=== PATIENT | female | born 1980 | race Caucasian/White ===

== ENCOUNTER 2017-12-13 06:27 | Day surgery (SDC) | payer BC ==
[~2017-12-13 06:27] MED LIST: Lidocaine 1%/Sod Bicarbonate in NS 8.4% 1 ML Syringe IDERM PRN; Sodium Chloride 0.9% 10 ML Syringe FLUSH PRN
[2017-12-13] MEDS: Lactated Ringers 1,000 ML IV SCH ×2 (06:50→15:03)
[2017-12-13] MEDS ORDERED: Rocuronium 50 MG/5 ML Vial ONE (07:24)
[2017-12-13] MEDS ORDERED: Ondansetron 4 MG/2 ML SDV ONE (07:24)
[2017-12-13] MEDS ORDERED: ceFAZolin 1 GM Vial ONE (07:24)
[2017-12-13] MEDS ORDERED: HYDROmorphone 1 MG/ML Syringe ONE ×2 (07:25→10:39)
[2017-12-13] MEDS ORDERED: Propofol 200 MG/20 ML SDV ONE (07:25)
[2017-12-13] MEDS ORDERED: fentaNYL 250 MCG/5 ML SDV ONE (07:25)
[2017-12-13] MEDS ORDERED: Midazolam 1 MG/ML 2 ML SDV ONE (07:25)
--- NOTE | 2017-12-13 07:27 | PCM.PREANE ---
Preanesthetic Assessment - Anesthesia/Transfusion/Family Hx Anesthesia History: Prior Anesthesia Without Reaction Family History of Anesthesia Reaction: No Transfusion History: No Prior Transfusion(s) - Review of Systems General: No Symptoms Pulmonary: Other (allergy induced asthma, uses inhaler very rarely) Cardiovascular: No Symptoms Gastrointestinal: No Symptoms Neurological: No Symptoms Other: Reports: Depression, Anxiety - Physical Assessment NPO Status Date: 12/12/17 NPO Status Time: 22:30 Pulse: 84 O2 Sat by Pulse Oximetry: 99 Respiratory Rate: 16 Blood Pressure: 143/85 Temperature: 37.4 C Vital Signs: Last Vital Signs Temp 37.4 C 12/13/17 06:35 Pulse 84 12/13/17 06:35 Resp 16 12/13/17 06:35 BP 143/85 H 12/13/17 06:35 Pulse Ox 99 12/13/17 06:35 Height: 1.57 m Weight: 94.801 kg ASA Class: 2 Mental Status: Alert & Oriented x3 Airway Class: Mallampati = 2 Dentition: Reports: Normal Dentition Thyro-Mental Finger Breadths: 3 Mouth Opening Finger Breadths: 3 ROM/Head Extension: Full Lungs: Clear to Auscultation, Normal Respiratory Effort Cardiovascular: Regular Rate, Regular Rhythm - Lab Values: Laboratory Last Values WBC 10.06 K/mm3 (3.98-10.04) H 12/13/17 06:50 RBC 4.68 M/mm3 (3.98-5.22) 12/13/17 06:50 Hgb 13.9 gm/L (11.2-15.7) 12/13/17 06:50 Hct 39.7 % (34.1-44.9) 12/13/17 06:50 MCV 84.8 fl (79.4-94.8) 12/13/17 06:50 MCH 29.7 pg (25.6-32.2) 12/13/17 06:50 MCHC 35.0 g/dl (32.2-35.5) 12/13/17 06:50 RDW Std Deviation 38.6 fL (36.4-46.3) 12/13/17 06:50 Plt Count 278 K/mm3 (182-369) 12/13/17 06:50 MPV 10.6 fl (9.4-12.3) 12/13/17 06:50 Neut % (Auto) 64.3 % (34.0-71.1) 12/13/17 06:50 Lymph % (Auto) 27.1 % (19.3-51.7) 12/13/17 06:50 [place] % (Auto) 5.4 % (4.7-12.5) 12/13/17 06:50 Eos % (Auto) 3.0 (0.7-5.8) 12/13/17 06:50 Baso % (Auto) 0.2 % (0.1-1.2) 12/13/17 06:50 Neut # (Auto) 6.47 K/mm3 (1.56-6.13) H 12/13/17 06:50 Lymph # (Auto) 2.73 K/mm3 (1.18-3.74) 12/13/17 06:50 [place] # (Auto) 0.54 K/mm3 (0.24-0.36) H 12/13/17 06:50 Eos # (Auto) 0.30 K/mm3 (0.04-0.36) 12/13/17 06:50 Baso # (Auto) 0.02 K/mm3 (0.01-0.08) 12/13/17 06:50 Sodium 138 mEq/L (136-145) 12/13/17 06:50 Potassium 4.1 mEq/L (3.5-5.1) 12/13/17 06:50 Chloride 102 mEq/L (98-107) 12/13/17 06:50 Carbon Dioxide 24 mEq/L (21-32) 12/13/17 06:50 Anion Gap 16.1 (5-15) H 12/13/17 06:50 Urine HCG, Qual Negative (NEGATIVE) 12/13/17 06:34 - Allergies Allergies/Adverse Reactions: Allergies Allergy/AdvReac Type Severity Reaction Status Date / Time No Known Allergies Allergy Verified 12/12/17 11:10 - Blood Blood Available: No Product(s) Available: None - Anesthesia Plan Pre-Op Medication Ordered: None - Acknowledgements Anesthesia Type Planned: General Anesthesia Pt an Appropriate Candidate for the Planned Anesthesia: Yes Alternatives and Risks of Anesthesia Discussed w Pt/Guardian: Yes Pt/Guardian Understands and Agrees with Anesthesia Plan: Yes PreAnesthesia Questionnaire HEENT History: Reports: Allergic Rhinitis Cardiovascular History: Reports: None Respiratory History: Reports: Asthma Gastrointestinal History: Reports: None Genitourinary History: Reports: Other (See Below) Other Genitourinary History: cystocele, rectocele, uterine prolapse DEVULCANIZER HEAD History: Reports: Musculoskeletal History: Reports: Other (See Below) Other Musculoskeletal History: muscle spasm Neurological History: Reports: Headaches, Chronic Psychiatric History: Reports: Anxiety, Depression Endocrine/Metabolic History: Reports: Vitamin D Deficiency Hematologic History: Reports: None Immunologic History: Reports: None Oncologic (Cancer) History: Reports: None Dermatologic History: Reports: None - Past Surgical History Head Surgeries/Procedures: Reports: None HEENT Surgical History: Reports: None Cardiovascular Surgical History: Reports: None Respiratory Surgical History: Reports: None GI Surgical History: Reports: Cholecystectomy Male Surgical History: Reports: None Endocrine Surgical History: Reports: None Neurological Surgical History: Reports: None Oncologic Surgical History: Reports: None - SUBSTANCE USE Smoking Status *Q: Never Smoker Tobacco Use Within Last Twelve Months: No Second Hand Smoke Exposure: No Days Per Week of Alcohol Use: 0 Recreational Drug Use History: No - HOME MEDS Home Medications: Home Meds Bethanechol Chloride [Urecholine] 10 mg PO DAILY 12/12/17 [History] Cholecalciferol (Vitamin D3) [Vitamin D3] 50,000 unit PO TU 12/12/17 [History] Multivitamin [Poly-Vitamin] 1 tab PO DAILY 12/12/17 [History] - CURRENT (IN HOUSE) MEDS Current Meds: Current Medications Lactated Ringer's (Ringers, Lactated) 1,000 mls @ 125 mls/hr IV ASDIRECTED RICHARD Stop: 12/13/17 23:00 Last Admin: 12/13/17 06:50 Dose: 125 mls/hr Lidocaine/Sodium Bicarbonate (Buffered Lidocaine 1% In Ns 8.4%) 0.25 ml IDERM ONETIME PRN PRN Reason: Prior to IV Start Stop: 12/13/17 18:00 Last Admin: 12/13/17 06:50 Dose: 0.25 ml Sodium Chloride (Saline Flush) 10 ml FLUSH ASDIRECTED PRN PRN Reason: Keep Vein Open Stop: 12/13/17 18:00 Discontinued Medications Cefazolin Sodium (Ancef) Confirm Administered Dose 2 gm .ROUTE .STK-MED ONE Stop: 12/13/17 07:25 Fentanyl (Sublimaze) Confirm Administered Dose 250 mcg .ROUTE .STK-MED ONE Stop: 12/13/17 07:26 Hydromorphone HCl (Dilaudid) Confirm Administered Dose 1 mg .ROUTE .ST-MED ONE Stop: 12/13/17 07:26 Midazolam HCl (Versed 1 Mg/Ml) Confirm Administered Dose 2 mg .ROUTE .ST-MED ONE Stop: 12/13/17 07:26 Ondansetron HCl (Zofran) Confirm Administered Dose 4 mg .ROUTE .STK-MED ONE Stop: 12/13/17 07:25 Propofol (Diprivan 20 Ml) Confirm Administered Dose 200 mg .ROUTE .ST-MED ONE Stop: 12/13/17 07:26 Rocuronium [place] (Zemuron) Confirm Administered Dose 50 mg .ROUTE .ST-MED ONE Stop: 12/13/17 07:25
[2017-12-13] MEDS: Sodium Chloride 0.9% 50 ML SDV ONE ×2 (08:36→09:19)
[2017-12-13] MEDS: Lidocaine 1% with EPINEPHrine 1:100,000 20 ML MDV ONE ×2 (08:36→09:19)
[2017-12-13] MEDS ORDERED: Lactated Ringers 1,000 ML ONE ×2 (09:37→10:55)
[2017-12-13] MEDS ORDERED: fentaNYL 100 MCG/2 ML SDV IVPUSH PRN (11:34)
--- NOTE | 2017-12-13 11:34 | PCM.POSTAN ---
POST ANESTHESIA ASSESSMENT - MENTAL STATUS Mental Status: Alert, Oriented - VITAL SIGNS Pulse Rate: 100 SaO2: 97 Resp Rate: 16 Blood Pressure: 114/67 Temperature: 37.4 C - RESPIRATORY Respiratory Status: Respiratory Rate WNL, Airway Patent, O2 Saturation Stable, Supplemental Oxygen - CARDIOVASCULAR CV Status: Pulse Rate WNL, Blood Pressure Stable - GASTROINTESTINAL GI Status: No Symptoms - PAIN Pain Score: 0 - POST OP HYDRATION Hydration Status: Adequate & Stable
--- NOTE | 2017-12-13 11:39 | PCM.OPNOTE ---
- General Post-Op/Procedure Note Date of Surgery/Procedure: 12/13/17 Operative Procedure(s): Total vaginal hysterectomy bilateral salpingectomy. Anterior posterior colporrhaphy. Mid urethral sling Pre Op Diagnosis: Uterovaginal prolapse, midline cystocele, rectocele Post-Op Diagnosis: Same Anesthesia Technique: General ET Tube Primary Surgeon: Khurram Salgado Secondary Surgeon: Michelle Arenas Anesthesia Provider: Litzy Javed Evaporative Cooler Installer: Artemio Rosado (RYLEE) Reason Evaporative Cooler Installer Was Necessary: Difficult surgery, provide assistance with surgery in addition to retraction. Decrease cold comorbidity and comortality Role of Evaporative Cooler Installer: Difficult surgery, provide assistance with surgery in addition to retraction. Decrease cold comorbidity and comortality Fluid Replacement, Intraop: 2,700 Output, Urine Amount: 105 EBL in mLs: 450 Drain/Tube Comments:: None Complications: None Condition: Good Free Text/Narrative:: Intake & Output 12/12/17 12/13/17 12/13/17 22:59 06:59 14:59 Output Total 105 Balance -105 Patient was transported to operating room #2 and placed under general anesthesia in low dorsal lithotomy position. Prepared and draped in a sterile fashion. SCDs in place and functioning prior surgery. Ancef 2 g given intravenously prior surgery. Examination under anesthesia revealed anterior uterus no adnexal masses cystocele noted second to third degree and first to second-degree rectocele. Timeout performed confirming name, date of , procedure as total vaginal hysterectomy bilateral salpingectomy (possible removal of one or both ovaries-neither ovary removed), anterior and posterior colporrhaphy and mid urethral sling, possible total abdominal hysterectomy bilateral salpingectomy, anterior posterior repair (colporrhaphy) and mid urethral sling. The cervix was injected with 0.25% lidocaine with epinephrine and multiple confluent areas 20 mL total. This was massaged into the tissue to help with hydrodissection. Circumscribing incision was made around the cervix. Posterior colpotomy was performed without difficulty. Utilizing LigaSure crossclamping the uterosacral cardinal ligaments on the left side activating and incising same procedure carried out on the right side anterior colpotomy was then performed without difficulty and proceeding in a pedicle fashion cephalad crossclamping activating incising until the area of the triple pedicle was approximated. Crossclamping with Daljit clamps bilaterally the uterus and cervix were removed. Utilizing #1 Vicryl suture placed at both triple pedicles. And LigaSure as well for hemostasis. The right and left ovaries both appeared normal there were not removed. The left tube was grasped and utilizing LigaSure crossclamping the mesosalpinx and removing the left fallopian tube after activation LigaSure. Same procedure carried out on the patient's right side. The posterior cuff was closed from 10:00 to 2:00 running locking suture of 0 Monocryl additional [id number] sutures at the right side and at approximate 5:00 for hemostasis. The anterior colporrhaphy was then performed by injecting 7 mL of 0.5% lidocaine with epinephrine in the subvaginal space to allow hydrodissection and incising to approximately 1 cm short of the cystoscopy urethral angle the redundant mucosa was pushed laterally with wet 4 x 4. Plication sutures of 0 Monocryl were placed to reduce the cystocele. The redundant vaginal causes a was excised and the vaginal mucosa was approximated with a running suture of 3-0 Monocryl. The anterior posterior cuff then closed running locking suture of 0 Monocryl after confirming no bleeding. Sponge needle pack asthma sharp count correct 2 prior to closure of the vaginal cuff. The bladder was drained. Urine clear and yellow no blood. The mid urethral sling was then performed and grasping just approximately 10 mm short of the external urethral meatus and at the cystoscopy vaginal angle injecting 3 mL of 0.5% lidocaine with epinephrine and incising this area. The obturator foramen bilaterally identified and marked with a marking pen and injected with 2 mL of lidocaine 0.25% with epinephrine bilaterally and incising approximate 5 mm incision to allow passage of the mid urethral sling instruments. Dissecting to the obturator foramen bilaterally and pushing the bladder and urethra cephalad the sling needles were passed from the left side first and then right side confirming no vaginal Telma and no and impingement upon the bladder utilizing a #[address] the sling properly the redundant mesh tissue was excised at the skin level left and right side above the obturator foramen. Reconfirming that the mesh was not to tense and not twisted, the mucosa was closed with a running suture of 3-0 Monocryl. The posterior was then performed grasping at approximate 5:00 and 7:00 at the perineal body making an inverted farrukh incision the redundant mucosa was removed and undermining after injecting 3 mL of 0.5% lidocaine with epinephrine the rectal vaginal mucosa the rectocele was reduced and the plication sutures placed and the rectocele repaired. Redundant vaginal mucosa was excised. 3-0 Monocryl was utilized running suture to close the vaginal mucosa. And the perineal skin was approximated with 3-0 Monocryl subcuticular suture. Sponge needle pack asthma count correct 2. Rectal exam was negative at the end procedure. No blood transfusions required patient transported postanesthesia care unit in satisfactory condition. Talked with family and all questions answered to their voiced satisfaction. [place] We'll probably need to keep patient overnight for pain management.
[2017-12-13] MEDS ORDERED: HYDROmorphone 0.5 MG/0.5 ML Syringe IVPUSH ONE (12:40)
--- NOTE | 2017-12-13 12:56 | PCM48HPAN ---
Post Anesthesia Note - EVALUATION WITHIN 48HRS OF ANESTHETIC Vital Signs in Normal Range: Yes Patient Participated in Evaluation: Yes Respiratory Function Stable: Yes Airway Patent: Yes Cardiovascular Function Stable: Yes Hydration Status Stable: Yes Pain Control Satisfactory: Yes Nausea and Vomiting Control Satisfactory: Yes Mental Status Recovered: Yes Pulse Rate: 78 SaO2: 99 Resp Rate: 10 Temperature: 37.4 C Blood Pressure: 114/67
[2017-12-13] MEDS: Acetaminophen/oxyCODONE 325-5 MG Tab PO PRN ×2 (15:28→20:08)
[2017-12-13] MEDS ORDERED: Ketorolac 30 MG/ML SDV IVPUSH ONE (16:00)
--- NOTE | 2017-12-13 17:55 | PCM.SN ---
- Free Text/Narrative Note: DOS Afebrile, no heavy vaginal bleeding, difficulty voiding. No leg cramping. Post void residual scan after voiding.
[2017-12-14] MEDS: Acetaminophen/oxyCODONE 325-5 MG Tab PO PRN ×3 (00:29→08:44)
[2017-12-14] MEDS: Ibuprofen 600 MG Tab PO PRN ×2 (00:29→07:47)
[2017-12-14 07:53] VITALS: BP 139/84
--- NOTE | 2017-12-14 08:28 | PCM.DCSUM1 ---
Discharge Summary - Hospital Course Free Text/Narrative:: [facility] Post-Op/Procedure Note Patient Name: PRETTY BEACH Date of : 78 Patient Status: Surgical Day Care Attending Provider: Khurram Salgado Date: 12/13/17 11:27 Initialization Date: 12/13/17 11:27 - General Post-Op/Procedure Note Date of Surgery/Procedure: 12/13/17 Operative Procedure(s): Total vaginal hysterectomy bilateral salpingectomy. Anterior posterior colporrhaphy. Mid urethral sling Pre Op Diagnosis: Uterovaginal prolapse, midline cystocele, rectocele Post-Op Diagnosis: Same Anesthesia Technique: General ET Tube Primary Surgeon: Khurram Salgado Secondary Surgeon: Michelle Arenas Anesthesia Provider: Litzy Javed Gasket Maker: Artemio Rosado (RYLEE) Reason Gasket Maker Was Necessary: Difficult surgery, provide assistance with surgery in addition to retraction. Decrease cold comorbidity and comortality Role of Gasket Maker: Difficult surgery, provide assistance with surgery in addition to retraction. Decrease cold comorbidity and comortality Fluid Replacement, Intraop: 2,700 Output, Urine Amount: 105 EBL in mLs: 450 Drain/Tube Comments:: None Complications: None Condition: Good Free Text/Narrative:: Intake & Output 12/12/17 12/13/17 12/13/17 22:59 06:59 14:59 Output Total 105 Balance -105 Patient was transported to operating room #2 and placed under general anesthesia in low dorsal lithotomy position. Prepared and draped in a sterile fashion. SCDs in place and functioning prior surgery. Ancef 2 g given intravenously prior surgery. Examination under anesthesia revealed anterior uterus no adnexal masses cystocele noted second to third degree and first to second-degree rectocele. Timeout performed confirming name, date of , procedure as total vaginal hysterectomy bilateral salpingectomy (possible removal of one or both ovaries-neither ovary removed), anterior and posterior colporrhaphy and mid urethral sling, possible total abdominal hysterectomy bilateral salpingectomy, anterior posterior repair (colporrhaphy) and mid urethral sling. The cervix was injected with 0.25% lidocaine with epinephrine and multiple confluent areas 20 mL total. This was massaged into the tissue to help with hydrodissection. Circumscribing incision was made around the cervix. Posterior colpotomy was performed without difficulty. Utilizing LigaSure crossclamping the uterosacral cardinal ligaments on the left side activating and incising same procedure carried out on the right side anterior colpotomy was then performed without difficulty and proceeding in a pedicle fashion cephalad crossclamping activating incising until the area of the triple pedicle was approximated. Crossclamping with Daljit clamps bilaterally the uterus and cervix were removed. Utilizing #1 Vicryl suture placed at both triple pedicles. And LigaSure as well for hemostasis. The right and left ovaries both appeared normal there were not removed. The left tube was grasped and utilizing LigaSure crossclamping the mesosalpinx and removing the left fallopian tube after activation LigaSure. Same procedure carried out on the patient's right side. The posterior cuff was closed from 10:00 to 2:00 running locking suture of 0 Monocryl additional [id number] sutures at the right side and at approximate 5:00 for hemostasis. The anterior colporrhaphy was then performed by injecting 7 mL of 0.5% lidocaine with epinephrine in the subvaginal space to allow hydrodissection and incising to approximately 1 cm short of the cystoscopy urethral angle the redundant mucosa was pushed laterally with wet 4 x 4. Plication sutures of 0 Monocryl were placed to reduce the cystocele. The redundant vaginal causes a was excised and the vaginal mucosa was approximated with a running suture of 3-0 Monocryl. The anterior posterior cuff then closed running locking suture of 0 Monocryl after confirming no bleeding. Sponge needle pack asthma sharp count correct 2 prior to closure of the vaginal cuff. The bladder was drained. Urine clear and yellow no blood. The mid urethral sling was then performed and grasping just approximately 10 mm short of the external urethral meatus and at the cystoscopy vaginal angle injecting 3 mL of 0.5% lidocaine with epinephrine and incising this area. The obturator foramen bilaterally identified and marked with a marking pen and injected with 2 mL of lidocaine 0.25% with epinephrine bilaterally and incising approximate 5 mm incision to allow passage of the mid urethral sling instruments. Dissecting to the obturator foramen bilaterally and pushing the bladder and urethra cephalad the sling needles were passed from the left side first and then right side confirming no vaginal Telma and no and impingement upon the bladder utilizing a #[address] the sling properly the redundant mesh tissue was excised at the skin level left and right side above the obturator foramen. Reconfirming that the mesh was not to tense and not twisted, the mucosa was closed with a running suture of 3-0 Monocryl. The posterior was then performed grasping at approximate 5:00 and 7:00 at the perineal body making an inverted farrukh incision the redundant mucosa was removed and undermining after injecting 3 mL of 0.5% lidocaine with epinephrine the rectal vaginal mucosa the rectocele was reduced and the plication sutures placed and the rectocele repaired. Redundant vaginal mucosa was excised. 3-0 Monocryl was utilized running suture to close the vaginal mucosa. And the perineal skin was approximated with 3-0 Monocryl subcuticular suture. Sponge needle pack asthma count correct 2. Rectal exam was negative at the end procedure. No blood transfusions required patient transported postanesthesia care unit in satisfactory condition. Talked with family and all questions answered to their voiced satisfaction. Patient [place] approximate 30 [place] hospital [place] We'll probably need to keep patient overnight for pain management. HPI Initial Comments: [facility] Post-Op/Procedure Note Patient Name: PRETTY BEACH Date of : 78 Patient Status: Surgical Day Care Attending Provider: Khurram Salgado Date: 12/13/17 11:27 Initialization Date: 12/13/17 11:27 - General Post-Op/Procedure Note Date of Surgery/Procedure: 12/13/17 Operative Procedure(s): Total vaginal hysterectomy bilateral salpingectomy. Anterior posterior colporrhaphy. Mid urethral sling Pre Op Diagnosis: Uterovaginal prolapse, midline cystocele, rectocele Post-Op Diagnosis: Same Anesthesia Technique: General ET Tube Primary Surgeon: Khurram Salgado Secondary Surgeon: Michelle Arenas Anesthesia Provider: Litzy Javed Gasket Maker: Artemio Rosado (RYLEE) Reason Gasket Maker Was Necessary: Difficult surgery, provide assistance with surgery in addition to retraction. Decrease cold comorbidity and comortality Role of Gasket Maker: Difficult surgery, provide assistance with surgery in addition to retraction. Decrease cold comorbidity and comortality Fluid Replacement, Intraop: 2,700 Output, Urine Amount: 105 EBL in mLs: 450 Drain/Tube Comments:: None Complications: None Condition: Good Free Text/Narrative:: Intake & Output 12/12/17 12/13/17 12/13/17 22:59 06:59 14:59 Output Total 105 Balance -105 Patient was transported to operating room #2 and placed under general anesthesia in low dorsal lithotomy position. Prepared and draped in a sterile fashion. SCDs in place and functioning prior surgery. Ancef 2 g given intravenously prior surgery. Examination under anesthesia revealed anterior uterus no adnexal masses cystocele noted second to third degree and first to second-degree rectocele. Timeout performed confirming name, date of , procedure as total vaginal hysterectomy bilateral salpingectomy (possible removal of one or both ovaries-neither ovary removed), anterior and posterior colporrhaphy and mid urethral sling, possible total abdominal hysterectomy bilateral salpingectomy, anterior posterior repair (colporrhaphy) and mid urethral sling. The cervix was injected with 0.25% lidocaine with epinephrine and multiple confluent areas 20 mL total. This was massaged into the tissue to help with hydrodissection. Circumscribing incision was made around the cervix. Posterior colpotomy was performed without difficulty. Utilizing LigaSure crossclamping the uterosacral cardinal ligaments on the left side activating and incising same procedure carried out on the right side anterior colpotomy was then performed without difficulty and proceeding in a pedicle fashion cephalad crossclamping activating incising until the area of the triple pedicle was approximated. Crossclamping with Daljit clamps bilaterally the uterus and cervix were removed. Utilizing #1 Vicryl suture placed at both triple pedicles. And LigaSure as well for hemostasis. The right and left ovaries both appeared normal there were not removed. The left tube was grasped and utilizing LigaSure crossclamping the mesosalpinx and removing the left fallopian tube after activation LigaSure. Same procedure carried out on the patient's right side. The posterior cuff was closed from 10:00 to 2:00 running locking suture of 0 Monocryl additional [id number] sutures at the right side and at approximate 5:00 for hemostasis. The anterior colporrhaphy was then performed by injecting 7 mL of 0.5% lidocaine with epinephrine in the subvaginal space to allow hydrodissection and incising to approximately 1 cm short of the cystoscopy urethral angle the redundant mucosa was pushed laterally with wet 4 x 4. Plication sutures of 0 Monocryl were placed to reduce the cystocele. The redundant vaginal causes a was excised and the vaginal mucosa was approximated with a running suture of 3-0 Monocryl. The anterior posterior cuff then closed running locking suture of 0 Monocryl after confirming no bleeding. Sponge needle pack asthma sharp count correct 2 prior to closure of the vaginal cuff. The bladder was drained. Urine clear and yellow no blood. The mid urethral sling was then performed and grasping just approximately 10 mm short of the external urethral meatus and at the cystoscopy vaginal angle injecting 3 mL of 0.5% lidocaine with epinephrine and incising this area. The obturator foramen bilaterally identified and marked with a marking pen and injected with 2 mL of lidocaine 0.25% with epinephrine bilaterally and incising approximate 5 mm incision to allow passage of the mid urethral sling instruments. Dissecting to the obturator foramen bilaterally and pushing the bladder and urethra cephalad the sling needles were passed from the left side first and then right side confirming no vaginal Telma and no and impingement upon the bladder utilizing a #[address] the sling properly the redundant mesh tissue was excised at the skin level left and right side above the obturator foramen. Reconfirming that the mesh was not to tense and not twisted, the mucosa was closed with a running suture of 3-0 Monocryl. The posterior was then performed grasping at approximate 5:00 and 7:00 at the perineal body making an inverted farrukh incision the redundant mucosa was removed and undermining after injecting 3 mL of 0.5% lidocaine with epinephrine the rectal vaginal mucosa the rectocele was reduced and the plication sutures placed and the rectocele repaired. Redundant vaginal mucosa was excised. 3-0 Monocryl was utilized running suture to close the vaginal mucosa. And the perineal skin was approximated with 3-0 Monocryl subcuticular suture. Sponge needle pack asthma count correct 2. Rectal exam was negative at the end procedure. No blood transfusions required patient transported postanesthesia care unit in satisfactory condition. Talked with family and all questions answered to their voiced satisfaction. Patient lives approximate 30 miles from the hospital [place] We'll probably need to keep patient overnight for pain management. Brief History: [facility] . Post-Op/Procedure Note. Patient Name: PRETTY BEACH Record Number: [id number]. Date of : Patient Status: Surgical Day Care. Attending Provider: Khurram Salgadoount Number: [id number]. Date: 12/13/17 11:27Initialization Date: 11:27. - General Post-Op/Procedure Note. Date of Surgery/Procedure: . Operative Procedure(s): Total vaginal hysterectomy bilateral salpingectomy. Anterior posterior colporrhaphy. Mid urethral sling. Pre Op Diagnosis: Uterovaginal prolapse, midline cystocele, rectocele. Post-Op Diagnosis: Same. Anesthesia Technique: General ET Tube. Primary Surgeon: Khurram Salgado. Secondary Surgeon: Michelle Arenas. Anesthesia Provider: Litzy Javed. Gasket Maker: Artemio Rosado (RYLEE). Reason Gasket Maker Was Necessary: Difficult surgery, provide assistance with surgery in addition to retraction. Decrease cold comorbidity and comortality. Role of Gasket Maker: Difficult surgery, provide assistance with surgery in addition to retraction. Decrease cold comorbidity and comortality. Fluid Replacement, Intraop: 2,700. Output, Urine Amount: 105. EBL in mLs: 450. Drain/Tube Comments:: None. Complications: None. Condition: Good. Free Text/Narrative:: Intake & Output. 12/12/1801/. [id number]:[id number]. Output [id number]. Balance-105. Patient was transported to operating room #2 and placed under general anesthesia in low dorsal lithotomy position. Prepared and draped in a sterile fashion. SCDs in place and functioning prior surgery. Ancef 2 g given intravenously prior surgery. Examination under anesthesia revealed anterior uterus no adnexal masses cystocele noted second to third degree and first to second-degree rectocele. Timeout performed confirming name, date of , procedure as total vaginal hysterectomy bilateral salpingectomy (possible removal of one or both ovaries-neither ovary removed), anterior and posterior colporrhaphy and mid urethral sling, possible total abdominal hysterectomy bilateral salpingectomy, anterior posterior repair (colporrhaphy) and mid urethral sling. The cervix was injected with 0.25% lidocaine with epinephrine and multiple confluent areas 20 mL total. This was massaged into the tissue to help with hydrodissection. Circumscribing incision was made around the cervix. Posterior colpotomy was performed without difficulty. Utilizing LigaSure crossclamping the uterosacral cardinal ligaments on the left side activating and incising same procedure carried out on the right side anterior colpotomy was then performed without difficulty and proceeding in a pedicle fashion cephalad crossclamping activating incising until the area of the triple pedicle was approximated. Crossclamping with Daljit clamps bilaterally the uterus and cervix were removed. Utilizing #1 Vicryl suture placed at both triple pedicles. And LigaSure as well for hemostasis. The right and left ovaries both appeared normal there were not removed. The left tube was grasped and utilizing LigaSure crossclamping the mesosalpinx and removing the left fallopian tube after activation LigaSure. Same procedure carried out on the patient's right side. The posterior cuff was closed from 10:00 to 2:00 running locking suture of 0 Monocryl additional [id number] sutures at the right side and at approximate 5:00 for hemostasis. The anterior colporrhaphy was then performed by injecting 7 mL of 0.5% lidocaine with epinephrine in the subvaginal space to allow hydrodissection and incising to approximately 1 cm short of the cystoscopy urethral angle the redundant mucosa was pushed laterally with wet 4 x 4. Plication sutures of 0 Monocryl were placed to reduce the cystocele. The redundant vaginal causes a was excised and the vaginal mucosa was approximated with a running suture of 3-0 Monocryl. The anterior posterior cuff then closed running locking suture of 0 Monocryl after confirming no bleeding. Sponge needle pack asthma sharp count correct 2 prior to closure of the vaginal cuff. The bladder was drained. Urine clear and yellow no blood. The mid urethral sling was then performed and grasping just approximately 10 mm short of the external urethral meatus and at the cystoscopy vaginal angle injecting 3 mL of 0.5% lidocaine with epinephrine and incising this area. The obturator foramen bilaterally identified and marked with a marking pen and injected with 2 mL of lidocaine 0.25% with epinephrine bilaterally and incising approximate 5 mm incision to allow passage of the mid urethral sling instruments. Dissecting to the obturator foramen bilaterally and pushing the bladder and urethra cephalad the sling needles were passed from the left side first and then right side confirming no vaginal Telma and no and impingement upon the bladder utilizing a #[address] the sling properly the redundant mesh tissue was excised at the skin level left and right side above the obturator foramen. Reconfirming that the mesh was not to tense and not twisted, the mucosa was closed with a running suture of 3-0 Monocryl. The posterior was then performed grasping at approximate 5:00 and 7:00 at the perineal body making an inverted farrukh incision the redundant mucosa was removed and undermining after injecting 3 mL of 0.5% lidocaine with epinephrine the rectal vaginal mucosa the rectocele was reduced and the plication sutures placed and the rectocele repaired. Redundant vaginal mucosa was excised. 3-0 Monocryl was utilized running suture to close the vaginal mucosa. And the perineal skin was approximated with 3-0 Monocryl subcuticular suture. Sponge needle pack asthma count correct 2. Rectal exam was negative at the end procedure. No blood transfusions required patient transported postanesthesia care unit in satisfactory condition. Talked with family and all questions answered to their voiced satisfaction. Patient lives approximate 30 miles from the hospital [place] road. We'll probably need to keep patient overnight for pain management. - Discharge Data Discharge Date: 12/14/17 Discharge Disposition: Home, Self-Care 01 Condition: Good - Discharge Diagnosis/Problem(s) (1) Uterovaginal prolapse SNOMED Code(s): 52907414 ICD Code: N81.4 - UTEROVAGINAL PROLAPSE, UNSPECIFIED Status: Acute Current Visit: Yes (2) Cystocele, midline SNOMED Code(s): 193316206 ICD Code: N81.11 - CYSTOCELE, MIDLINE Status: Acute Current Visit: Yes (3) Rectocele SNOMED Code(s): 013368159 ICD Code: N81.6 - RECTOCELE Status: Acute Current Visit: Yes - Patient Summary/Data Operative Procedure(s) Performed: Total vaginal hysterectomy bilateral salpingectomy. Anterior posterior colporrhaphy. Mid urethral sling Complications: Patient had postoperative urinary retention, [place] [address] [place] [address] [place] bad weather skull travel back if complications, postoperative pain management patient placed on extended floor recovery. Consults: None - Patient Instructions Diet: Regular Diet as Tolerated Driving: Do Not Drive (2 weeks and for 48 hours after last dose of Percocet.) Showering/Bathing: May Shower, No Tub Bathing/Swimming (6 weeks) Notify Provider of: Fever, Increased Pain, Swelling and Redness, Drainage, Nausea and/or Vomiting - Discharge Plan Home Medications: Home Meds Bethanechol Chloride [Urecholine] 10 mg PO DAILY 12/12/17 [History] Cholecalciferol (Vitamin D3) [Vitamin D3] 50,000 unit PO TU 12/12/17 [History] Multivitamin [Poly-Vitamin] 1 tab PO DAILY 12/12/17 [History] Patient Handouts: Anterior and Posterior Colporrhaphy, Sling Procedure, Care After, Vaginal Hysterectomy, Care After - Discharge Summary/Plan Comment DC Time >30 min.: No - Patient Data Vitals - Most Recent: Last Vital Signs Temp 98.6 F 12/14/17 07:51 Pulse 79 12/14/17 07:51 Resp 16 12/14/17 07:51 BP 139/84 12/14/17 07:51 Pulse Ox 98 12/14/17 07:51 Weight - Most Recent: 209 lb I&O - Last 24 hours: Intake & Output 12/13/17 12/14/17 12/14/17 22:59 06:59 14:59 Intake Total 240 Output Total 800 144 4506 Balance -260 -600 -1000 Lab Results - Last 24 hrs: Laboratory Results - last 24 hr 12/14/17 Range/Units 05:10 WBC 17.49 H (3.98-10.04) K/mm3 RBC 3.80 L (3.98-5.22) M/mm3 Hgb 11.2 (11.2-15.7) gm/L Hct 32.5 L (34.1-44.9) % MCV 85.5 (79.4-94.8) fl MCH 29.5 (25.6-32.2) pg MCHC 34.5 (32.2-35.5) g/dl RDW Std Deviation 36.7 (36.4-46.3) fL Plt Count 289 (182-369) K/mm3 MPV 11.1 (9.4-12.3) fl Neut % (Auto) 76.8 H (34.0-71.1) % Lymph % (Auto) 15.9 L (19.3-51.7) % Elbert % (Auto) 7.0 (4.7-12.5) % Eos % (Auto) 0.2 L (0.7-5.8) Baso % (Auto) 0.1 (0.1-1.2) % Neut # (Auto) 13.44 H (1.56-6.13) K/mm3 Lymph # (Auto) 2.78 (1.18-3.74) K/mm3 Elbert # (Auto) 1.23 H (0.24-0.36) K/mm3 Eos # (Auto) 0.03 L (0.04-0.36) K/mm3 Baso # (Auto) 0.01 (0.01-0.08) K/mm3 Med Orders - Current: Current Medications Bethanechol Chloride (Urecholine) 10 mg PO Q6H [facility] Last Admin: 12/14/17 04:35 Dose: 10 mg Ibuprofen (Motrin) 600 mg PO Q6H PRN PRN Reason: Pain Last Admin: 12/14/17 07:47 Dose: 600 mg Oxycodone/Acetaminophen (Percocet 325-5 Mg) 1 - 2 tab PO Q4H PRN PRN Reason: Pain Last Admin: 12/14/17 04:35 Dose: 2 tab Discontinued Medications Bethanechol Chloride (Urecholine) 10 mg PO Q1H [facility] Stop: 12/13/17 16:01 Last Admin: 12/13/17 16:17 Dose: 10 mg Cefazolin Sodium (Ancef) Confirm Administered Dose 2 gm .ROUTE .STK-MED ONE Stop: 12/13/17 07:25 Fentanyl (Sublimaze) Confirm Administered Dose 250 mcg .ROUTE .STK-MED ONE Stop: 12/13/17 07:26 Fentanyl (Sublimaze) 50 mcg IVPUSH Q5M PRN PRN Reason: pain Stop: 12/13/17 18:00 Last Admin: 12/13/17 12:25 Dose: 50 mcg Hydromorphone HCl (Dilaudid) Confirm Administered Dose 1 mg .ROUTE .STK-MED ONE Stop: 12/13/17 07:26 Hydromorphone HCl (Dilaudid) Confirm Administered Dose 1 mg .ROUTE .STK-MED ONE Stop: 12/13/17 10:40 Hydromorphone HCl (Dilaudid) 0.5 mg IVPUSH ONETIME ONE Stop: 12/13/17 12:41 Last Admin: 12/13/17 15:33 Dose: Not Given Lactated Ringer's (Ringers, Lactated) 1,000 mls @ 125 mls/hr IV ASDIRECTED RICHARD Stop: 12/13/17 23:00 Last Admin: 12/13/17 15:03 Dose: 125 mls/hr Lactated Ringer's (Ringers, Lactated) Confirm Administered Dose 1,000 mls @ as directed .ROUTE .STK-MED ONE Stop: 12/13/17 09:38 Lactated Ringer's (Ringers, Lactated) Confirm Administered Dose 1,000 mls @ as directed .ROUTE .STK-MED ONE Stop: 12/13/17 10:56 Ketorolac Tromethamine (Toradol) 30 mg IVPUSH ONETIME ONE Stop: 12/13/17 16:01 Last Admin: 12/13/17 16:17 Dose: 30 mg Lidocaine/Epinephrine (Xylocaine 1% With Epinephrine 1:100,000) Confirm Administered Dose 20 ml .ROUTE .STK-MED ONE Stop: 12/13/17 07:18 Last Admin: 12/13/17 09:19 Dose: 13.75 ml Lidocaine/Sodium Bicarbonate (Buffered Lidocaine 1% In Ns 8.4%) 0.25 ml IDERM ONETIME PRN PRN Reason: Prior to IV Start Stop: 12/13/17 18:00 Last Admin: 12/13/17 06:50 Dose: 0.25 ml Midazolam HCl (Versed 1 Mg/Ml) Confirm Administered Dose 2 mg .ROUTE .STK-MED ONE Stop: 12/13/17 07:26 Ondansetron HCl (Zofran) Confirm Administered Dose 4 mg .ROUTE .STK-MED ONE Stop: 12/13/17 07:25 Propofol (Diprivan 20 Ml) Confirm Administered Dose 200 mg .ROUTE .STK-MED ONE Stop: 12/13/17 07:26 Rocuronium [place] (Zemuron) Confirm Administered Dose 50 mg .ROUTE .STK-MED ONE Stop: 12/13/17 07:25 Sodium Chloride (Saline Flush) 10 ml FLUSH ASDIRECTED PRN PRN Reason: Keep Vein Open Stop: 12/13/17 18:00 Sodium Chloride (Normal Saline) Confirm Administered Dose 50 ml .ROUTE .STK-MED ONE Stop: 12/13/17 07:20 Last Admin: 12/13/17 09:19 Dose: 41.25 ml *Q Meaningful Use (DIS) - VTE *Q VTE Criteria *Q: - Stroke *Q Stroke Criteria *Q: - AMI *Q AMI Criteria *Q:
== END 2017-12-14 09:34 | disposition home or self-care (01) ==
LOC: JD.SDS 06:27 → JD.OB 14:04 → JD.SDS 12-14 09:34
PROVIDERS: ATTEND Obstetrics & Gynecology
DX: N80.0 Endometriosis of uterus (principal); N85.8 Other specified noninflammatory disorders of uterus; N81.4 Uterovaginal prolapse, unspecified; N81.11 Cystocele, midline; N81.6 Rectocele; F41.8 Other specified anxiety disorders; J45.909 Unspecified asthma, uncomplicated; I10 Essential (primary) hypertension; E55.9 Vitamin D deficiency, unspecified; Z79.899 Other long term (current) drug therapy
CPT/HCPCS: 36415; 57260; 57288; 58262; 80051; 81025; 85025; 86850; 86900; 86901; A9270; C1771; J0690; J1170; J1885; J2250; J2405; J3010; J7120; J2704

== ENCOUNTER → 2025-01-03 | Day surgery (SDC) | payer BC, OTHER ==
[~2025-01-03] MED LIST changes: +Lidocaine 1% 4 ML ONE; -Lidocaine 1%/Sod Bicarbonate in NS 8.4% 1 ML Syringe IDERM PRN; +Propofol 200 MG/20 ML SDV ONE; +Sodium Chloride 0.9% 10 ML Syringe FLUSH SCH
[2025-01-03] MEDS: Lactated Ringers 1,000 ML IV SCH (09:00)
[2025-01-03 11:01] VITALS: BP 110/76; PULSE 64
== END | disposition home or self-care (01) ==
LOC: JD.SDS 08:41
PROVIDERS: ATTEND Surgery
DX: Z12.11 Encounter for screening for malignant neoplasm of colon (principal); I10 Essential (primary) hypertension; E78.00 Pure hypercholesterolemia, unspecified; F32.A Depression, unspecified; F41.9 Anxiety disorder, unspecified; Z79.899 Other long term (current) drug therapy
CPT/HCPCS: 45380; J2003; J2704; J7120; 00812